=== PATIENT | male | born 1950 | race Caucasian/White ===

== ENCOUNTER → 2019-07-12 | Outpatient (CLI) | payer OTHER ==
[~2019-07-12] VITALS: Ht 170.2 cm; Wt 89.8 kg
[~2019-07-12] MED LIST: ANBESOL9 GM TOP; ASPIR 8181 MG PO; FERREX 150 PLU1 EAC1 PO; FLOMAX0.4 MG PO; LOPRESSOR25 PO; MIRALAX17 GM PO; MULTI VITAMIN1 EACH PO; NAPROSYN500 MG PO; NITROGLYCERIN0.4 MG SUBLING; OMEPRAZOLE40 MG PO; PRILOSEC OTC20 MG PO; PROBIOTIC1 EAC1 PO; THERA-M1 EAC1 PO; TOPROL XL50 MG PO; VITAMIN D1000 UNI1 PO; VITAMIN D31000 UNI2 PO; VITAMINC500 PO; VYTORIN 10-401 EACH PO
[2019-07-12 06:59] VITALS: BP 129/74
[2019-07-12 07:42] LABS: HEMATOCRIT 45.3 % (42.0-52.0); HEMOGLOBIN 15.4 gm/dL (14.0-18.0); PLATELET COUNT 155 thou/uL (150-400); RBC 4.98 mil/uL (4.50-6.00); RDW 13.4 % (10.5-14.5); WBC 5.8 thou/uL (4.0-11.0)
[2019-07-12 07:52] LABS: ANION GAP 12 mmol/L (7-16); BUN 12 mg/dL (7-18); CALCIUM 9.2 mg/dL (8.5-10.1); CHLORIDE 107 mmol/L (98-107); CO2 25 mmol/L (21-32); CREATININE 1.1 mg/dL (0.7-1.3); GLUCOSE 115 mg/dL (74-106); SODIUM 144 mmol/L (136-145)
[2019-07-12 07:57] LABS: CHOLESTEROL 181 mg/dL (<200); HDL CHOLESTEROL 40 mg/dL (>40); LDL CHOLESTEROL 103 mg/dL (<100); TC:HDL 4.5 Ratio (Not establshd); TRIGLYCERIDE 192 mg/dL (<150); VLDL 38 mg/dL (<40)
--- NOTE | 2019-07-12 08:18 | EKG ---
[address] [place] [address] ELECTROCARDIOGRAM REPORT Name: FLORINDA COPE Room #: REG CLI JamaalWilverFernandaWilver#: [id number] Admission: 07/12/19 Attend Phys: Roosevelt Osborn MD, FA Discharge: Date of : 50 Report #: [id number] THIS REPORT FOR: //name// [facility] Test Date: 2019-07-12 Test Time: 07:18:50 Pat Name: FLORINDA COPE Department: Room: Gender: Associate Designer: Sixto LEOS : 1950 Requested By: Roosevelt Osborn Order Number: [id number] MD: Tai Ventura Measurements Intervals [place] Rate: 72 P: 65 UT: 147 QRS: 39 QRSD: 99 T: 25 QT: 404 QTc: 443 Interpretive Statements Sinus rhythm Normal tracing No previous ECG available for comparison Electronically Signed On 07-12-2019 8:18:02 CDT by Tai Ventura [email or web address] <ELECTRONICALLY SIGNED> By: Tai Ventura MD, [facility] 07/12/19817 7 07 Tai Ventura MD, FACC /EPI
[2019-07-12 11:19] LABS: APTT 33.6 Seconds (24.5-32.8); PROTIME 10.3 Seconds (9.3-11.4)
[2019-07-12 11:22] LABS: CALCIUM 9.2 mg/dL (8.5-10.1); CREATININE 0.9 mg/dL (0.7-1.3); POTASSIUM 3.8 mmol/L (3.5-5.1)
[2019-07-12 11:24] LABS: ALBUMIN 3.8 g/dL (3.4-5.0); TOTAL BILIRUBIN 0.4 mg/dL (<0.1-1.0); TOTAL PROTEIN 7.3 g/dL (6.4-8.2)
--- NOTE | 2019-07-12 12:45 | 2DMMODE ---
[facility] [place] [address] 2 D/M-MODE ECHOCARDIOGRAM Name: CLOVIS COPENANCY Sanchez Room #: REG CL [facility]#: [id number] Admission: 07/12/19 Attend Phys: Roosevelt Osborn MD Discharge: Date of : 50 Date of Service: 07/12/19 1244 Report #: [id number] THIS REPORT FOR: //name// APPROVED REPORT Study performed: 07/12/2019 10:59:06 EXAM: Comprehensive 2D, Doppler, and color-flow Echocardiogram Patient Location: CVL Status: routine BSA: 2.02 HR: 82 bpm BP: 129/74 mmHg Rhythm: Sinus arrhythmia Other Information Study Quality: Adequate Indications Pre-Op CABG. 2D Dimensions RVDd: 34.50 mm IVSd: 11.28 (7-11mm) LVOT Diam: 21.99 (18-24mm) LVDd: 48.12 mm PWd: 9.98 (7-11mm) Ascending Ao: 31.45 (22-36mm) LVDs: 30.41 (25-40mm) Aortic Root: 36.50 mm Volumes Left Atrial Volume (Systole) Single Plane 4CH: 40.00 mL Single Plane 2CH: 69.24 mL LA ESV Index: 29.00 mL/m2 Aortic Valve AoV Peak Ang.: 1.15 m/s AO Peak Gr.: 5.33 mmHg LVOT Max P.57 mmHg LVOT Max V: 0.94 m/s RYANN Vmax: 3.11 cm2 Mitral Valve E/A Ratio: 0.8 MV Decel. Time: 249.64 ms MV E Max Ang.: 0.66 m/s [facility] [address] [place] [address] 2 D/M-MODE ECHOCARDIOGRAM Name: FLORINDA COPE Daniel Room #: REG [facility]#: [id number] Admission: 07/12/19 Attend Phys: Roosevelt Osborn MD Discharge: Date of : 50 Date of Service: 07/12/19 1244 Report #: [id number] MV A Ang.: 0.82 m/s MV PHT: 72.39 ms IVRT: 92.27 ms Pulmonary Valve PV Peak Ang.: 1.03 m/s PV Peak Gr.: 4.27 mmHg Pulmonary Vein P Vein S: 0.47 m/s P Vein A: 0.35 m/s P Vein D: 0.30 m/s P Vein A Dur.: 115.3 msec P Vein S/D Ratio: 1.57 Tricuspid Valve RAP Estimate: 5.00 mmHg Left Ventricle The left ventricle is normal size. There is normal LV segmental wall motion. There is normal left ventricular wall thickness. Left ventricular systolic function is normal. LVEF is 55%. Mild diastolic dysfunction is present (impaired relaxation pattern). Right Ventricle The right ventricle is normal size. The right ventricular systolic function is normal. Atria Left atrium is mildly dilated. The right atrium size is normal. Aortic Valve The aortic valve is normal in structure; mildly calcified. No aortic regurgitation is present. There is no aortic valvular stenosis. Mitral Valve The mitral valve is normal in structure. Trace to mild mitral regurgitation. Tricuspid Valve The tricuspid valve is normal in structure. There is no tricuspid valve regurgitation noted. Unable to assess PA pressure. Pulmonic Valve Pulmonic valve is not well visualized. Trace pulmonic regurgitation. [facility] [place] [address] 2 D/M-MODE ECHOCARDIOGRAM Name: FLORINDA COPE Room #: REG CadenWilver#: [id number] Admission: 07/12/19 Attend Phys: Roosevelt Osborn MD Discharge: Date of : 50 Date of Service: 07/12/19 1244 Report #: [id number] Great Vessels The aortic root is normal in size. The ascending aorta is normal in size. IVC is normal in size and collapses >50% with inspiration. Pericardium There is no pericardial effusion. <Conclusion> LVEF is 55%. Left atrium is mildly dilated. Trace to mild mitral regurgitation. <ELECTRONICALLY SIGNED> By: Roosevelt Osborn MD, [facility] 07/12/19 1244 1244 1244 Roosevelt Osborn MD, FACC /INF
[2019-07-12 13:08] LABS: URINE BILIRUBIN NEGATIVE (Negative); URINE BLOOD NEGATIVE (Negative); URINE CLARITY CLEAR; URINE COLOR YELLOW; URINE GLUCOSE-RANDOM* NEGATIVE (Negative); URINE KETONES NEGATIVE (Negative); URINE LEUKOCYTES-REFLEX NEGATIVE (Negative); URINE NITRITE-REFLEX NEGATIVE (Negative); URINE PROTEIN (DIPSTICK) NEGATIVE (Negative); URINE SPECIFIC GRAVITY <= 1.005 (1.005-1.035); URINE UROBILINOGEN 0.2 E.U./dl (0.2-1.0)
[2019-07-12 13:59] LABS: ABSOLUTE NEUTROPHILS 3.8 thou/uL (1.4-8.2); PLATELET ESTIMATE NORMAL
--- NOTE | 2019-07-12 16:39 | CATHLAB ---
[facility] [address] [place] [address] INVASIVE PROCEDURE REPORT Name: FLORINDA COPE Room #: REG Gerhard#: [id number] Admission: 07/12/19 Attend Phys: Roosevelt Osborn MD Discharge: Date of : 50 Date of Service: 07/12/19 1639 Report #: [id number] THIS REPORT FOR: //name// APPROVED REPORT Study performed: 07/12/2019 07:13:40 Patient Details Patient Status: Out-Patient Room #: The patient is a 68 year-old male Event Personnel Roosevelt Osborn Slasher Tender Helper, Elliott Rick RN, Ángel Porter RTR Scrub, Roosevelt Becerra Monitor, Latonya Cope RN RN, Chung Aguilar RTR Scrub Procedures Performed Left Heart Cath w/or w/o Coronaries [id number] [facility] Indication Dyspnea, Positive stress test, Chest pain Risk Factors Hypercholesterolemia Admission/Lab Medications/Medications given during procedure Heparin Unfract. Procedure Narrative The patient was brought electively to the Cardiac Catheterization Laboratory and was prepped and draped in a sterile manner. The Right Wrist^ was infiltrated with 1% Lidocaine subcutaneous anesthesia. A TRANSRADIAL SLENDER 6F [employer] KIT #[id number] sheath was inserted into the Right Radial Artery^. Coronary angiography was performed using coronary diagnostic catheters. The right coronary system was accessed and visualized with a 6FR AR MOD #[id number] catheter. The left coronary system was accessed and visualized with a 6FR JL 3.5 #[id number] catheter. The left ventricle was accessed and visualized with a pigtail catheter. Left ventricular/Aortic Valve gradient assessed via catheter pullback. Left ventriculogram was performed in 30 degree projection. Closure device was deployed with a 6 Fr VASC BAND L 27CM #[id number]. The patient tolerated the procedure well and there were no complications associated with the procedure. There was no hematoma. Unable to cannulate RCA with JR4 nor 3 DRC catheter because of anterior takeoff of RCA from right cusp and because of difficulty [facility] [address] [place] [address] INVASIVE PROCEDURE REPORT Name: CLOVIS COPEROE Daniel Room #: REG [facility]#: [id number] Admission: 07/12/19 Attend Phys: Roosevelt Osborn MD Discharge: Date of : 50 Date of Service: 07/12/19 1639 Report #: [id number] torquing catheter secondary to tortuous subclavian artery. Unable to cannulate left coronary with JL4 catheter because of tortous aorta. Intraoperative Conscious Sedation Sedation start time: 8.09 Case end Time: 9.01 Fentanyl 25 mcg Versed 4 mg Fluoro Time: 8.00 minutes Dose: DAP 62814.00 cGycm2 1418 mGy Contrast Type and Amount: Omnipaque 175 ml Coronary Angiography The patient's coronary anatomy is right dominant. Diagnostic Cath Left Main 80% stenosis LAD chronically occluded after takeoff from left main, and filled retrograde by collaterals from the RV branch of the RCA. Circumflex 80% proximal stenosis noted Right Coronary 70% mid stenosis noted Left Ventriculography The left ventricle is normal in size with normal contractility. The left ventricular ejection fraction is estimated to be 55-60%. Left ventricular wall motion abnormalities are not present. There is no mitral insufficiency. Hemodynamics The aortic pressure is 127/64 mmHg with a mean of 80 mmHg. The left ventricular pressure is 120/16 mmHg with a mean of mmHg. The left ventricular end diastolic pressure is 24 mmHg. There was no gradient across the aortic valve upon pullback. Pullback from the left ventricle to the aorta revealed no gradient across the aortic valve. Conclusion 1. Chronic occlusion of the proximal LAD that filled by collaterals from the rca 2. 80% stenosis of the left main artery, and 80% stenosis of the proximal circumflex artery. 3. 70% stenosis of the mid RCA 4. LVEF 55-60% [address] [address] INVASIVE PROCEDURE REPORT Name: FLORINDA COPE Room #: REG JOSE DE JESUS Hennessy#: [id number] Admission: 07/12/19 Attend Phys: Roosevelt Osborn MD Discharge: Date of : 50 Date of Service: 07/12/19 1639 Report #: [id number] Recommendations CABG <ELECTRONICALLY SIGNED> By: Roosevelt Osborn MD, FACC 07/12/191638 38 38 Roosevelt Osborn MD, [facility] /INF
[2019-07-13 04:06] LABS: GLYCOHEMOGLOBIN (HGB A1C) 5.6 % (4.8-5.6)
== END | disposition home or self-care (01) ==
LOC: CATH 06:26
PROVIDERS: Internal Medicine Cardiovascular Disease; Surgery Vascular Surgery
DX: I25.10 Atherosclerotic heart disease of native coronary artery without angina pectoris (principal); I34.0 Nonrheumatic mitral (valve) insufficiency; R07.9 Chest pain, unspecified; N40.0 Benign prostatic hyperplasia without lower urinary tract symptoms; K21.9 Gastro-esophageal reflux disease without esophagitis; E78.5 Hyperlipidemia, unspecified; E66.9 Obesity, unspecified; D69.6 Thrombocytopenia, unspecified; Z79.82 Long term (current) use of aspirin; Z79.899 Other long term (current) drug therapy; Z98.890 Other specified postprocedural states

== ENCOUNTER 2019-07-22 05:43 | Inpatient (IN) | payer OTHER ==
[~2019-07-22] VITALS: Ht 172.7 cm; Wt 91.0 kg
[2019-07-22] VITALS (16 sets, daily range): BP systolic 87–142; BP diastolic 51–78
[~2019-07-22 05:43] MED LIST changes: -ANBESOL9 GM TOP; -FERREX 150 PLU1 EAC1 PO; -LOPRESSOR25 PO; -MIRALAX17 GM PO
[2019-07-22 13:53] LABS: HEMATOCRIT 30.7 % (42.0-52.0); MCH 31.3 pg (26.0-34.0); MCHC 34.3 g/dL (28.0-37.0); MCV 91.5 fL (80.0-100.0); RBC 3.36 mil/uL (4.50-6.00); RDW 12.9 % (10.5-14.5); WBC 15.6 thou/uL (4.0-11.0)
[2019-07-22 13:55] LABS: HEMOGLOBIN 10.5 gm/dL (14.0-18.0)
[2019-07-22 14:06] LABS: INR 1.6
[2019-07-22 14:08] LABS: APTT 27.9 Seconds (24.5-32.8); FIBRINOGEN 176.2 mg/dL (210-360); PROTIME 16.6 Seconds (9.3-11.4)
[2019-07-22 14:54] LABS: POC BE 0 mmol/L (-2.0 to +3.0); POC CA IONIZED 4.4 mg/dL (4.5-5.3); POC GLUCOSE 164 mg/dL (70-99); POC HCO3 24.2 mmol/L (22.0-26.0); POC HEMOGLOBIN 10.2 g/dL (14.0-18.0); POC POTASSIUM 5.1 mmol/L (3.5-5.1); POC SODIUM 139 mmol/L (136-145); POC pCO2 36.6 mmHg (35.0-45.0); POC pH 7.428 (7.360-7.450)
[2019-07-22 14:54] LABS: POC BE -4 mmol/L (-2.0 to +3.0); POC CA IONIZED 4.9 mg/dL (4.5-5.3); POC GLUCOSE 136 mg/dL (70-99); POC HCO3 21.3 mmol/L (22.0-26.0); POC HEMOGLOBIN 11.2 g/dL (14.0-18.0); POC POTASSIUM 3.8 mmol/L (3.5-5.1); POC SODIUM 142 mmol/L (136-145); POC pCO2 38.1 mmHg (35.0-45.0); POC pH 7.355 (7.360-7.450)
[2019-07-22 14:54] LABS: POC BE 0 mmol/L (-2.0 to +3.0); POC CA IONIZED 4.9 mg/dL (4.5-5.3); POC GLUCOSE 147 mg/dL (70-99); POC HCO3 25.3 mmol/L (22.0-26.0); POC HEMOGLOBIN 13.3 g/dL (14.0-18.0); POC POTASSIUM 4.5 mmol/L (3.5-5.1); POC SODIUM 139 mmol/L (136-145); POC pCO2 46.5 mmHg (35.0-45.0); POC pH 7.344 (7.360-7.450)
[2019-07-22 14:54] LABS: POC BE 0 mmol/L (-2.0 to +3.0); POC CA IONIZED 4.5 mg/dL (4.5-5.3); POC GLUCOSE 175 mg/dL (70-99); POC HCO3 25.8 mmol/L (22.0-26.0); POC HEMOGLOBIN 9.9 g/dL (14.0-18.0); POC POTASSIUM 5.1 mmol/L (3.5-5.1); POC SODIUM 140 mmol/L (136-145); POC pCO2 45.4 mmHg (35.0-45.0); POC pH 7.363 (7.360-7.450)
[2019-07-22 14:54] LABS: POC BE 0 mmol/L (-2.0 to +3.0); POC CA IONIZED 4.4 mg/dL (4.5-5.3); POC GLUCOSE 145 mg/dL (70-99); POC HCO3 24.4 mmol/L (22.0-26.0); POC HEMOGLOBIN 10.5 g/dL (14.0-18.0); POC POTASSIUM 4.8 mmol/L (3.5-5.1); POC SODIUM 139 mmol/L (136-145); POC pCO2 38.2 mmHg (35.0-45.0); POC pH 7.414 (7.360-7.450)
[2019-07-22 14:54] LABS: POC BE 1 mmol/L (-2.0 to +3.0); POC CA IONIZED 4.2 mg/dL (4.5-5.3); POC GLUCOSE 143 mg/dL (70-99); POC HCO3 25.5 mmol/L (22.0-26.0); POC HEMOGLOBIN 10.5 g/dL (14.0-18.0); POC POTASSIUM 4.6 mmol/L (3.5-5.1); POC SODIUM 138 mmol/L (136-145); POC pCO2 40.2 mmHg (35.0-45.0); POC pH 7.411 (7.360-7.450)
[2019-07-22 14:54] LABS: POC BE -1 mmol/L (-2.0 to +3.0); POC CA IONIZED 4.7 mg/dL (4.5-5.3); POC GLUCOSE 113 mg/dL (70-99); POC HCO3 23.1 mmol/L (22.0-26.0); POC HEMOGLOBIN 13.3 g/dL (14.0-18.0); POC POTASSIUM 4.2 mmol/L (3.5-5.1); POC SODIUM 141 mmol/L (136-145); POC pCO2 35.4 mmHg (35.0-45.0); POC pH 7.422 (7.360-7.450)
[2019-07-22 14:54] LABS: POC BE 1 mmol/L (-2.0 to +3.0); POC CA IONIZED 4.4 mg/dL (4.5-5.3); POC GLUCOSE 162 mg/dL (70-99); POC HCO3 24.9 mmol/L (22.0-26.0); POC HEMOGLOBIN 9.5 g/dL (14.0-18.0); POC POTASSIUM 4.6 mmol/L (3.5-5.1); POC SODIUM 137 mmol/L (136-145); POC pCO2 37.5 mmHg (35.0-45.0); POC pH 7.429 (7.360-7.450)
[2019-07-22 14:54] LABS: POC BE -3 mmol/L (-2.0 to +3.0); POC CA IONIZED 5.1 mg/dL (4.5-5.3); POC GLUCOSE 161 mg/dL (70-99); POC HCO3 22.8 mmol/L (22.0-26.0); POC HEMOGLOBIN 9.9 g/dL (14.0-18.0); POC POTASSIUM 4.2 mmol/L (3.5-5.1); POC SODIUM 140 mmol/L (136-145); POC pH 7.363 (7.360-7.450)
[2019-07-22 15:21] LABS: BE(vivo) -4.8 mmol/L (-2 to +3); HCO3 21.4 mmol/L (22.0-26.0); PCO2 43.4 mmHg (35.0-45.0); PO2 68.4 mmHg (80.0-100.0); sO2 92.1 % (92.0-98.0)
[2019-07-22 15:25] LABS: HEMATOCRIT 36.6 % (42.0-52.0); HEMOGLOBIN 12.4 gm/dL (14.0-18.0); MCHC 33.7 g/dL (28.0-37.0); MCV 91.9 fL (80.0-100.0); RBC 3.98 mil/uL (4.50-6.00); RDW 13.1 % (10.5-14.5); WBC 20.4 thou/uL (4.0-11.0)
[2019-07-22 15:33] LABS: CALCIUM 8.3 mg/dL (8.5-10.1); MAGNESIUM 2.5 mg/dL (1.8-2.4); POTASSIUM 4.2 mmol/L (3.5-5.1)
[2019-07-22 15:37] LABS: APTT 26.5 Seconds (24.5-32.8); INR 1.2; PROTIME 12.8 Seconds (9.3-11.4)
[2019-07-22 16:42] LABS: CHOLESTEROL 180 mg/dL (<200); HDL CHOLESTEROL 35 mg/dL (>40); LDL CHOLESTEROL 84 mg/dL (<100); TC:HDL 5.1 Ratio (Not establshd); TRIGLYCERIDE 309 mg/dL (<150); VLDL 62 mg/dL (<40)
[2019-07-22 16:55] LABS: BE(vivo) -6.3 mmol/L (-2 to +3); HCO3 19.1 mmol/L (22.0-26.0); PCO2 37.4 mmHg (35.0-45.0); PO2 71.7 mmHg (80.0-100.0); pH 7.326 (7.360-7.450); sO2 93.4 % (92.0-98.0)
[2019-07-22 20:10] LABS: BE(vivo) -8.5 mmol/L (-2 to +3); HCO3 17.2 mmol/L (22.0-26.0); PCO2 36.2 mmHg (35.0-45.0); PO2 68.6 mmHg (80.0-100.0); pH 7.295 (7.360-7.450)
[2019-07-22 23:06] LABS: GLYCOHEMOGLOBIN (HGB A1C) 5.6 % (4.8-5.6)
[2019-07-23 05:52] LABS: HEMATOCRIT 37.1 % (42.0-52.0); HEMOGLOBIN 12.4 gm/dL (14.0-18.0); MCH 30.6 pg (26.0-34.0); MCHC 33.3 g/dL (28.0-37.0); MCV 91.8 fL (80.0-100.0); RBC 4.05 mil/uL (4.50-6.00); RDW 13.4 % (10.5-14.5); WBC 15.5 thou/uL (4.0-11.0)
[2019-07-23 06:03] LABS: CALCIUM 8.4 mg/dL (8.5-10.1); CREATININE 1.4 mg/dL (0.7-1.3); MAGNESIUM 2.5 mg/dL (1.8-2.4); PHOSPHORUS 4.1 mg/dL (2.5-4.9); POTASSIUM 4.8 mmol/L (3.5-5.1)
--- NOTE | 2019-07-23 06:29 | NUR ---
Pt progressing well with stable VS and adequate SpO2 on current FiO2. PRN fentanyl and hydrocodones given for c/o chest "soreness" with desired effects achieved. Pt anxious at times and support/encouragement provided. Chest tube drainage minimal and urine output adequate for the shift. Pt taking PO fluids with no c/o nausea. Am lab results noted, continue with POC.
--- NOTE | 2019-07-23 11:53 | EKG ---
[place] [address] [address] [facility] [place] [address] ELECTROCARDIOGRAM REPORT Name: FLORINDA COPE Room #: 246-P ADM IN M.R.#: [id number] Admission: 07/22/19 Attend Phys: Chalino Oreilly MD Discharge: Date of : 50 Report #: [id number] THIS REPORT FOR: //name// [facility] Test Date: 2019-07-22 Test Time: 16:57:58 Pat Name: FLORINDA COPE Department: Room: 246 Gender: M Pharmacovigilance Specialist: NEHA : 1950 Requested By: Misael Wu Order Number: [id number] MD: Tai Ventura Measurements Intervals [place] Rate: 86 P: 65 NV: 147 QRS: 50 QRSD: 96 T: 34 QT: 403 QTc: 482 Interpretive Statements Sinus rhythm Abnormal R-wave progression, early transition Borderline prolonged QT interval Compared to ECG 07/12/2019 07:18:50 No significant changes Electronically Signed On 07-23-2019 11:53:25 CDT by Tai Ventura [email or web address] <ELECTRONICALLY SIGNED> By: Tai Ventura MD, [facility] 07/23/19 1153 1657 165 Tai Ventrua MD, [facility] /EPI
--- NOTE | 2019-07-23 11:59 | EKG ---
[address] [place] [address] ELECTROCARDIOGRAM REPORT Name: FLORINDA COPE Room #: 246-P ADM IN M.R.#: [id number] Admission: 07/22/19 Attend Phys: Chalino Oreilly MD Discharge: Date of : 50 Report #: [id number] THIS REPORT FOR: //name// [facility] Test Date: 2019-07-23 Test Time: 07:01:44 Pat Name: FLORINDA COPE Department: Room: 246 P Gender: M Hospital Chief Executive Officer: RODY : 1950 Requested By: Misael Wu Order Number: [id number] MD: Tai Ventura Measurements Intervals [place] Rate: 67 P: 38 MA: 129 QRS: 13 QRSD: 86 T: 13 QT: 411 QTc: 434 Interpretive Statements Sinus rhythm Abnormal R-wave progression, early transition ST elevation suggests acute pericarditis Compared to ECG 07/12/2019 07:18:50 ST (T wave) deviation now present Electronically Signed On 07-23-2019 11:59:26 CDT by Tai Ventura [email or web address] <ELECTRONICALLY SIGNED> By: Tai Ventura MD, [facility] 07/23/19 1159 0701 0701 Tai Ventura MD, [facility] /EPI
--- NOTE | 2019-07-23 12:12 | HC ---
[facility] [place] [place] [address] CONSULTATION Name: PALOMO GAMEZ Room #: 246-P ADM IN M.R.#: [id number] Admission: 07/22/19 Attend Phys: Chalino Oreilly MD Discharge: Date of : 50 Report #: [id number] THIS REPORT FOR: //name// CC: Roosevelt Ferrer DATE OF SERVICE: 07/22/2019 HISTORY OF PRESENT ILLNESS: Palomo Gamez is a 68-year-old white male who I was asked to see in the ICU today after he had coronary artery bypass surgery. Recently, the patient noted that when he exerts himself, he became short winded and will have to stop. He also noticed occasional heaviness in her chest that would resolve with rest. He denied diaphoresis, palpitations. I saw him in the Cardiology Clinic on 06/16/2019 and recommended a stress echocardiogram that was suggestive of ischemia. I performed a cardiac catheterization at [facility] on 07/12/2019. This was performed from the right radial artery. Results showed a normal ejection fraction. The LAD appeared chronically occluded, filled by collaterals from the right coronary artery. There was an 80% narrowing in the left main artery and 80% narrowing of the proximal circumflex. There was a 70% stenosis of the mid right coronary artery. I recommended he be considered for coronary artery bypass surgery. The patient of Dr. Chalino Oreilly in this clinic and he tested positive for MRSA in his nares. He was treated with antibiotics and admitted earlier today to undergo coronary artery bypass surgery. He was taken to the operating room by Dr. Oreilly and underwent 4-vessel bypass surgery with a left internal mammary artery graft to the LAD and a single vein graft went to the posterior descending branch, marginal branch and diagonal artery. At the current time, he is in the ICU and on the ventilator. He is receiving IV amiodarone. PAST MEDICAL HISTORY: Significant for eye surgery. He has a history of hyperlipidemia. MEDICATIONS: Included Vytorin, Prilosec, Flomax. ALLERGIES: He has no known drug allergies. FAMILY HISTORY: Positive for heart disease. SOCIAL HISTORY: He is . He and his live in [place], [place]. 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 He quit smoking years ago. He does use alcohol occasionally. REVIEW OF SYSTEMS: He has had no history of stroke, asthma, peptic ulcer disease, liver disease, kidney disease, psychiatric illness or chronic skin [address] [address] CONSULTATION Name: PALOMO GAMEZ Room #: 246-P [facility]#: [id number] Admission: 07/22/19 Attend Phys: Chalino Oreilly MD Discharge: Date of : 50 Report #: [id number] condition. PHYSICAL EXAMINATION: GENERAL: Revealed an elderly male, lying in bed on ventilator. VITAL SIGNS: His blood pressure is 140/80, pulse 60. He is afebrile. HEENT: He was anicteric. Conjunctivae are pink. Mucous membranes are moist. NECK: Veins do not appear distended. CHEST: Clear to auscultation. CARDIOVASCULAR: Regular rate and rhythm with rub noted. ABDOMEN: Soft. EXTREMITIES: Had no edema. SKIN: Warm, dry. NEUROLOGIC: Nonfocal His workup, he had a carotid Doppler study performed on July 12 that showed mild plaquing without high-grade stenosis. He actually had an echocardiogram on 07/12/2019 that showed normal left ventricular function, left atrial enlargement, no significant valvular abnormality. His lab work: Sodium 144, potassium 4.2, BUN 16, creatinine 1.0, glucose 126. Liver function studies normal. Cholesterol 180, triglycerides 309, HDL 35, LDL 84. White blood cell count 20,000, hemoglobin 12.4, platelet count 99,000. IMPRESSION AND RECOMMENDATIONS: 1. Status post coronary artery bypass surgery. I would recommend aspirin 81 mg a day. I would recommend amiodarone prophylaxis to prevent atrial arrhythmias. The patient was recently started on a beta talia. 2. Hyperlipidemia. I would increase his statin drug to aim for an LDL less than 70. 3. Recent MRSA in his nares. The patient was treated with antibiotics. 4. Mild carotid plaque. Recommend repeat Doppler in 1 year. <ELECTRONICALLY SIGNED> By: Roosevelt Osborn MD, FACC 07/23/19 1212 1821 0412 Roosevelt Osborn MD, FACC /nt
--- NOTE | 2019-07-23 18:09 | NUR ---
PT IS ALERT AND ORINETED X4. UP TO CHAIR WORKED WITH PHYSICAL THERAPY TODAY. LUNGS ARE COARSE TO DIMINISHED. FAMILY AT BEDSIDE TODAY FOR SUPPORT. NSR ON THE MONITOR. TOLERATING A HEART HEALTHY DIET NO NAUSEA. CORREA TO DD WITH ARNOLDO URINE PRESENT. MEDIASTINAL CHEST TUBES PULLED TODAY. PAIN MEDS SEE MAR FOR TIME OF PAIN MEDS ADMINISTRATION. SCDS ON BILATERAL TRACE EDEMA NOTED. PT ANXIOUS AT TIMES. AND ENCOURAGE COUGHING AND DEEP BREATHING WITH PT AND NOT TO HOLD IS BREATH AT TIMES. WILL CONTINUE TO ASSESS AND MONITOR PER NURSING.
[2019-07-24] VITALS (42 sets, daily range): BP systolic 98–159; BP diastolic 59–92
[2019-07-24 05:22] LABS: BE(vivo) -3.2 mmol/L (-2 to +3); HCO3 19.9 mmol/L (22.0-26.0); PCO2 30.1 mmHg (35.0-45.0); pH 7.439 (7.360-7.450); sO2 90.5 % (92.0-98.0)
[2019-07-24 05:34] LABS: HEMATOCRIT 34.3 % (42.0-52.0); HEMOGLOBIN 11.6 gm/dL (14.0-18.0); MCH 30.8 pg (26.0-34.0); MCHC 33.8 g/dL (28.0-37.0); MCV 91.3 fL (80.0-100.0); RBC 3.76 mil/uL (4.50-6.00); RDW 13.6 % (10.5-14.5); WBC 16.7 thou/uL (4.0-11.0)
[2019-07-24 05:46] LABS: CALCIUM 8.3 mg/dL (8.5-10.1); CREATININE 0.9 mg/dL (0.7-1.3); POTASSIUM 4.3 mmol/L (3.5-5.1)
--- NOTE | 2019-07-24 06:57 | NUR ---
PT REMAINS WITH HIGH O2 DEMAND AND INCREASED FROM 12L TO 14L BY END OF MY SHIFT. PT HAS DIFFICULTY ALMOST REMEMBERING TO BREATHE IN COMBINATION WITH OTHER ACTIVITIES (I.E. STANDING AND MOVING) TAKES HIM A WHILE TO RECOVER. NEEDS FREQUENT ENCOURAGEMENT TO USE IS AND BE SELF MOTIVATED TO USE ON HIS OWN. HE IS HESITANT TO TAKE ORAL PAIN MEDS BUT WE DISCUSSED IF HE NEEDS THEM TO TAKE THEM TO AID IN BEING ABLE TO TAKE DEEPER BREATHS. TODAYS WT RECORDED ON STANDING SCALE WHEREAS YESTERDAY WT WAS TAKING WHILE PT WAS IN THE BED SO THERE IS A SIGNIFICANT WT DIFFERENCE. LET DAY RN KNOW REGARDING THAT.
--- NOTE | 2019-07-24 09:32 | O ---
[facility] [place] [place] [address] OPERATIVE REPORT Name: FLORINDA COPE Room #: 246-P ADM IN M.R.#: [id number] Admission: 07/22/19 Attend Phys: Chalino Oreilly MD Discharge: Date of : 50 Report #: [id number] THIS REPORT FOR: //name// CC: Roosevelt Ferrer DATE OF SERVICE: 07/22/2019 PREOPERATIVE DIAGNOSIS: Coronary artery disease. POSTOPERATIVE DIAGNOSIS: Coronary artery disease. OPERATION: Coronary artery bypass x4, including left internal mammary artery to left anterior descending artery, saphenous vein to diagonal and marginal and saphenous vein to posterior descending artery with endoscopic harvest, right greater saphenous vein. SURGEON: Chalino Oreilly MD DOCUMENT MANAGEMENT CONSULTANT: NONI Sanabria. ANESTHESIA: General. INDICATIONS: The patient is a 68-year-old with coronary artery disease. The patient presents with angina on minimal exertion. The patient was referred by Dr. Roosevelt Osborn. Cardiac catheterization demonstrated a right coronary artery with a large collateral that fed the left anterior descending and retrograde filling of the circumflex system. The left main was all, but occluded. There was a high-grade lesion beyond the large collateral in the right coronary. Left ventricular function is satisfactory. FINDINGS AND TECHNIQUE: After general anesthesia was established, saphenous vein was harvested using an endoscopic approach and prepared for use as a conduit. Exposure was obtained through median sternotomy. Left internal mammary artery was harvested from chest wall. Pericardial well was made. Cannulation sutures were placed. Heparin was given. Aorta was cannulated. Right atrium was cannulated. Cardioplegia needle was positioned in the aortic root. Retrograde cardioplegia catheter was placed in the coronary sinus. Cardiopulmonary bypass was established. The aorta was cross clamped. Antegrade and retrograde cardioplegia were given. Ice was poured into the pericardial well. The heart was stopped. During electromechanical arrest, the distal anastomoses were performed and [facility] [address] [place] [address] OPERATIVE REPORT Name: FLORINDA COPE Room #: 246-P [facility].#: [id number] Admission: 07/22/19 Attend Phys: Chalino Oreilly MD Discharge: Date of : 50 Report #: [id number] end-to-side anastomosis was made between vein and the posterior descending artery. This was a 1.4 mm vessel. Cold cardioplegia was given. Separate segment of vein was sewn in end-to-side fashion to the large marginal artery. This was a 1.7 mm vessel. Cold cardioplegia was given. Same segment of vein was sewn in end-to-side fashion to the diagonal artery. This was a 1.4 mm vessel. Cold cardioplegia was given. Left internal mammary artery was sewn in end-to-side fashion to the left anterior descending artery. This was a 1.5 mm vessel. Anastomosis was checked with the temperature technique. Cold cardioplegia was given. Two proximal anastomoses were performed and these were complete, warm retrograde cardioplegia was given, followed by warm continuous blood to the coronary sinus. When this infusion was complete, the crossclamp was removed, de-airing maneuvers were performed. The anastomoses were inspected and found to be satisfactory. The patient warmed, nice cardiac activity resumed, chest tubes and pacing wires were placed, a marker was placed around the proximal anastomoses. When the patient was warm, he was weaned from cardiopulmonary bypass. Venous cannula was removed. Protamine was given, the aortic cannula was removed. Flows were measured in the bypass grafts. When hemostasis was satisfactory, chest was irrigated with antibiotic solution and closed in the usual fashion. The patient was taken to the Intensive Care Unit in good condition having tolerated the procedure well. All counts reported as correct. <ELECTRONICALLY SIGNED> By: Chalino Oreilly MD 07/24/19 0932 1052 1207 Chalino Oreilly MD /nt
--- NOTE | 2019-07-24 16:01 | NUR ---
PT IS ALERT AND ORIENTED X4. LUNGS ARE COARSE TO DIMINISHED. AMBUATED 2 TIMES TODAY AND UP TO CHAIR. SINUS RHYTHM ON THE NATURAL RESOURCE ECONOMIST. EATING A HEART HEALTHT DIET. VOIDING PER URINAL. ON 6 LITERS NASAL CANULA TODAY. PT HAS ANXIETY AT TIMES. BUT COACHING DONE ON HIS PROGRESS MADE WITH HOSPITALIZATION. AND SURGERY. PLEURAL TUBE IN PLACE. USES INCENTIVE SPIROMETRY. FAMILY AT BEDSIDE TODAY FOR SUPPORT. PAIN MEDS GIVEN FOR PAIN MANAGEMENT. VS STABLE . WILL CONTINUE TO ASSESS AND MONITOR PER NURSING
[2019-07-25] VITALS (13 sets, daily range): BP systolic 104–138; BP diastolic 53–88
--- NOTE | 2019-07-25 05:51 | NUR ---
No events overnight. Monitor sinus rhythm. Left plural chest tube patent to -20 cmH20, no air leak or crepitus. All drsgs dry and intact. Remains on 5 L nasal canula, sat > 92%.
--- NOTE | 2019-07-25 08:56 | NUR ---
CM ASSESSMENT: CASE OPENED FOR DC PLANNING. CLINICAL INFO REVIEWED. PT ADMIT FOR CABG AND IS NOW POD #3. UP I CHAIR THIS AM. PT LIVES WITH SPOUSE IN HOUSE. RETIRED, INDEPENDENT WITH ADLS AND DRIVES. PT HAS A WALKER AT HOME IF NEEDED, ALSO WALK IN SHOWER WITH GRAB BARS AND SHOWE CHAIR. CURRENTLY ON 5 L O2 PER NC. WILL FOLLOW THERAPY EVALS AND ASSIST WITH COORDINATION OF NEEDS AT FOR DC. POSSIBLE HOME HEALTH RN/PT/OT.
--- NOTE | 2019-07-25 10:03 | NUR ---
RD consult received, pt s/p CABG x 4 on 07/22. Remains in ICU, chest tubes. Triglycerides 309, HDL 35, A1C wnl. Will address nutrition education needs once transferred out of ICU.
--- NOTE | 2019-07-25 16:52 | NUR ---
ASSESSMENTS AND INTERVENTIONS NEEDED. PATIENT ALERT AND ORIENTED X4. PATIENT IN THE CHAIR AT SHIFT CHANGE. PATIENT WORKED WITH PT AND WALKED AROUND THE NURSES STATION WITHOUT DIFFCULTY. PATIENT TRANSFERED TO BED AND PACER WIRES AND PLEURAL CHEST TUBE REMOVED PER ORDERS. PATIENT REMAINED ON BED REST FOR 1 HOUR. INTRODUCER REMOVED BY NURSE. PATIENT FAMILY AT BEDSIDE. FAMILY EDUCATED ON PLAN OF CARE AND TRANSFER ORDERS. FAMILY EXPRESSED UNDERSTANDING. PATIENT ATE LUNCH IN CHAIR AND EXPRESSES AN INCREASED APPETITE. PATIENT REMIANS IN CHAIR AND IS RESTING QUIETLY.
[2019-07-26] VITALS: BP 11/64
[2019-07-26 07:26] LABS: HEMATOCRIT 32.1 % (42.0-52.0); MCH 31.3 pg (26.0-34.0); MCHC 34.1 g/dL (28.0-37.0); MCV 91.7 fL (80.0-100.0); RBC 3.5 mil/uL (4.50-6.00); RDW 13.5 % (10.5-14.5); WBC 10.1 thou/uL (4.0-11.0)
[2019-07-26 07:41] LABS: CALCIUM 9.1 mg/dL (8.5-10.1); POTASSIUM 3.5 mmol/L (3.5-5.1)
--- NOTE | 2019-07-26 07:53 | NUR ---
PT SLEPT IN CHAIR DURING NOC. SEE Gemvara FOR ASSESSMENT. PT PROGRESSING TOWARD GOALS. AWAITING STEP DOWN BED. WANTS TO SHOWER. 02 3LNC. GOOD COUGH EFFORT. CONT WITH IS UP TO 1L. UP TO BSC-NO RESULTS AFTER LAXATIVE. PASSING GAS. CONT PLAN OF CARE
[2019-07-26 09:00] VITALS: BP 151/67
[2019-07-26 13:00] VITALS: BP 109/65
--- NOTE | 2019-07-26 14:03 | NUR ---
INTERVENTIONS AND ASSESMENTS DOCCUMENTED. PATIENT ALERT AND IN IN CHAIR DURING REPORT. PATIENT ASKING ABOUT TRANSFER TO NEW UNIT. PATIENT EDUCATED ON PLAN OF CARE. OT CAME AND WORKED WITH PATIENT. PATIENT TOLERATING BATH AND HYGEINE WELL. PT WALKING PATIENT. PATIENT O2 IN THE 88%. PATIENT WALKING WITH OXYGEN UNTIL IMPROVED SATS. FAMILY AT BEDSIDE AND EDUCATED ON PLAN OF CARE. REPORT GIVEN TO JHON HER ON CCU. PATIENT PREPARING TO TRANSFER.
[2019-07-26 15:00] VITALS: BP 122/69
--- NOTE | 2019-07-26 17:05 | NUR ---
PT TRANSFERED FROM ICU. ALERT AND ORIENTED. VSS. DENIED HAVING PAIN OR DISCOMFORT. JESSY DRESSING INTACT WITH WOUND VAC. UP IN THE CHAIR. NO CARDIAC OR RESPIRATORY DISTRESS NOTED. WILL CONTINUE TO MONITOR.
[2019-07-26 20:00] VITALS: BP 117/67
[2019-07-27 04:00] VITALS: BP 124/62
--- NOTE | 2019-07-27 04:30 | NUR ---
ASSESSMENT DOCUMENTED.PT REMAINS A/OX4.S/P CABGX4 POD#5.VSS.C/O ABDOMINAL GAS PAINS,THAT IMPROVES WITH AMBULATION.AMBULATED ON THE HALLWAY W/SUPERVISION.ON RA W/O RESP DISTRESS.ZARCO NOTED WITH ACTIVITIES .WOUND VAC IN PLACE.STERNAL INCISION DRESSING CDI.RIGHT LEG INCISION DRESSINGS INTACT.PT PASSED STOOL THIS AM.FEELS MUCH RELIEVED.VOIDING VIA URINAL.TYLENOL GIVEN FOR INCISIONS PAIN W/RELIEF.POC IS TO CONTINUE TO MONITOR PLUS INCREASE ACTIVTIES.
[2019-07-27 07:46] VITALS: BP 110/66
--- NOTE | 2019-07-27 07:59 | EKG ---
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1950 Requested By: Misael Wu Order Number: [id number] MD: Landon Croft Measurements Intervals [place] Rate: 84 P: 47 MI: 138 QRS: 19 QRSD: 101 T: 23 QT: 458 QTc: 542 Interpretive Statements Sinus rhythm Ventricular premature complex Abnormal R-wave progression, early transition Compared to ECG 07/23/2019 07:01:44 Ventricular premature complex(es) now present ST (T wave) deviation no longer present Electronically Signed On 07-27-2019 7:59:16 CDT by Landon Croft [email or web address] <ELECTRONICALLY SIGNED> By: Landon Croft MD 07/27/19 [id number] [id number] Landon Croft MD /EPI
[2019-07-27 12:01] VITALS: BP 115/75
--- NOTE | 2019-07-27 13:32 | NUR ---
Sp with patient and family regarding BSC as purchase item with [employer] approx $65 and [employer] pricing for purchase. Gave them information on pricing. Gave Home Health provider list if need HH [place]. Plan home with family possible HH [place]. patient lives in [place].
--- NOTE | 2019-07-27 14:19 | NUR ---
ASSESSMENT CHARTED PT ALERT AND ORIENTED. VSS. DENIED HAVING PAIN OR DISCOMFORT. AMBULATED X2 THIS AM. NO CARDIAC OR RESPIRATORY DISTRESS NOTED. UP IN THE CHAIR. NO CONCERNS AT THIS TIME. PROGRESSING WELL TOWARD DISCHARGE GOAL. WILL CONTINUE TO MONITOR.
[2019-07-27 16:50] VITALS: BP 104/67
[2019-07-27 19:39] VITALS: BP 111/59
--- NOTE | 2019-07-28 05:09 | NUR ---
ASSUMED PT CARE AT 1900. PT IS ALERT AND ORIENTED. PT IS STABLE AND SITTING IN CHAIR. WOUND VAC IN PLACE. ASSESSMENT COMPLETED AND CHARTED. DENIES ANY PAIN. FALL PRECAUTION IN PLACE. SCHEDULED MEDS ADMINISTERED TO PT. PT IS COMFORTABLE. DENIES ANY FURTHER NEEDS AT THIS TIME.
[2019-07-28 05:43] VITALS: BP 90/55
[2019-07-28 08:00] VITALS: BP 129/81
[2019-07-28 11:35] VITALS: BP 108/64
[2019-07-28] MEDS ORDERED: LOPRESSOR25 PO (12:13)
[2019-07-28] MEDS ORDERED: MIRALAX17 GM PO (12:13)
[2019-07-28] MEDS ORDERED: FERREX 150 PLU1 EAC1 PO (12:13)
[2019-07-28] MEDS ORDERED: ANBESOL9 GM TOP (12:23)
[2019-07-28 12:36] VITALS: BP 129/81
--- NOTE | 2019-07-28 12:37 | NUR ---
PT LIKELY DCING HOME TODAY. RECOMMENDATIONS FOR HH F/U DISCUSSED WITH THE PT AT BEDSIDE. HE IS AGREEABLE. HIS SISTER WILL BE COMING TO STAY WITH HIM HIS IS DISABLED AND THERE NEITHER CAN DRIVE RIGHT NOW. HH LISTING PROVIDED TO THE PT YESTERDAY. HE INDICATES HIS PREFERENCE IS [facility]. REFERRAL CALLED TO THEIR [facility] AND THEY ARE IN NETWORK WITH HIS INS. DC BEND SORTER TO FAX REFERRAL AND DC ORDERS FOR START OF CARE TOMORROW. PT'S SISTER WILL BE TRANSPORTING HIM HOME LATER TODAY ONCE CLEARED BY CTS.
[2019-07-28 12:39] VITALS: BP 129/81
--- NOTE | 2019-07-28 12:46 | NUR ---
FAXED REFERRAL TO [facility] HH SPOKE WITH TINO IN INTAKE SHE RECEIVED REFERRAL AND CAN ACCEPT. DCP TO FOLLOW.
--- NOTE | 2019-07-28 15:24 | NUR ---
ASSESSMENT CHARTED. PT ALERT AND ORIENTED. VSS. DENIED HAVING PAIN OR DISCOMFORT. UP IN THE CHAIR THIS SHIFT. AMBULATED X2 THIS SHIFT. STERNUM PRECAUTION ENFORCED. ORDERS GIVEN TO DISCHARGE PT TO HOME. DISCHARGE INSTRUCTIONS GIVEN TO PT. PT VERBERLIZED UNDERSTANDING. PT LEFT THE FACILITY ACCOMPANIED BY THE .
== END 2019-07-28 15:31 | disposition home health service (06) | DRG 235 ==
LOC: ICU 05:43 → TBA 05:43 → PRE 09:49 → OR 11:30 → EDSTATUS 11:31 → PRE 11:58 → ICU 15:03 → 2N 07-26 15:04 → ENTRNSPT 07-28 15:07 → EDTRNSPTSTS 07-28 15:10 → 2N 07-28 15:31
PROVIDERS: Internal Medicine; Physician Assistant; ADMIT Surgery Vascular Surgery
DX: I25.10 Atherosclerotic heart disease of native coronary artery without angina pectoris (principal); J96.01 Acute respiratory failure with hypoxia; J90 Pleural effusion, not elsewhere classified; E78.5 Hyperlipidemia, unspecified; I65.29 Occlusion and stenosis of unspecified carotid artery; I10 Essential (primary) hypertension; N40.0 Benign prostatic hyperplasia without lower urinary tract symptoms; B00.1 Herpesviral vesicular dermatitis; K21.9 Gastro-esophageal reflux disease without esophagitis; E66.9 Obesity, unspecified; M10.9 Gout, unspecified; Z79.82 Long term (current) use of aspirin; Z79.899 Other long term (current) drug therapy; Z82.49 Family history of ischemic heart disease and other diseases of the circulatory system; Z68.30 Body mass index [BMI] 30.0-30.9, adult; Z87.891 Personal history of nicotine dependence
CPT/HCPCS: 10078; 10081; 10203; 47000; 47001; 47002; 47297; 48888; 50010; 50249; 50409; 50498; 50643; 50668; 50953; 51301; 52131; 52259; 52314; 53327; 53358; 56455; 56524; 56525; 56526; 56527; 56528; 56531; 56534; 56668; 56760; 56898; 57093; 57116; 57167; 62110; 62950; 65003; 65020; 65047; 65090; 65120; 65135; 85076